=== PATIENT | male | born 1995 | race Caucasian/White ===

== ENCOUNTER 2018-12-20 12:29 | Emergency (ER) | payer OTHER ==
[2018-12-20] MEDS ORDERED: BENZONATATE 100 MG CAPSULE PO ONE (12:50)
--- NOTE | 2018-12-20 12:56 | ER Document Report ---
HPI - HPI Patient complains to provider of: cough Time Seen by Provider: 12/20/18 12:46 Onset: Last week Onset/Duration: Persistent Quality of pain: Achy Pain Level: 2 Context: 23-year-old male presents emergency department with reports that he has had a productive cough for the past week. Reports he is taken Mucinex Delsym without relief of symptoms. He denies fever vomiting diarrhea. Reports he has been sweating feels like he has no energy. Reports he is spitting up some yellow- white phlegm. Denies recent trip. Denies past medical history of asthma, lung disease. Patient is coughing frequently during interview and assessment. Reports he just got out of the 1 month ago. All immunizations up-to-date. Patient reports he quit smoking a couple months ago. Associated Symptoms: Productive cough Exacerbated by: Denies Relieved by: Denies Similar symptoms previously: No Recently seen / treated by doctor: No Past Medical History - General Information source: Patient - Social History Smoking Status: Former Smoker Cigarette use (# per day): No Frequency of alcohol use: None Drug Abuse: None Occupation: [employer] Lives with: Family Family History: None Patient has suicidal ideation: No Patient has homicidal ideation: No Pulmonary Medical History: Reports: Hx Pneumonia Past Surgical History: Reports: Hx Orthopedic Surgery Vertical Provider Document - CONSTITUTIONAL Agree With Documented VS: Yes Exam Limitations: No Limitations General Appearance: WD/WN, No Apparent Distress - HEENT HEENT: Atraumatic, Normal ENT Exam, Normocephalic. negative: Conjuctival Injection, Pharyngeal Erythema, Tympanic Membrane Red - NECK Neck: Normal Inspection, Supple. negative: Lymphadenopathy-Left, Lymphadenopathy-Right - RESPIRATORY Respiratory: No Respiratory Distress - no retractions, Rhonchi - CARDIOVASCULAR Cardiovascular: Regular Rate - GI/ABDOMEN Gastrointestinal: Abdomen Soft, Abdomen Non-Tender - BACK Back: Normal Inspection - MUSCULOSKELETAL/EXTREMETIES Musculoskeletal/Extremeties: REBECA ADAMS - NEURO Level of Consciousness: Awake, Alert, Appropriate - DERM Integumentary: Warm, Dry Course - Re-evaluation Re-evalutation: 12/20/18 12:57 This 23-year-old male presents emergency department with complaints of cough productive for the past week. Reports he is taking multiple nhfb-oqx-griytum medications without relief of symptoms. Patient reports he feels sluggish she sweating he has no energy. Denies fever vomiting diarrhea. 12/20/18 14:53 Chest X-Ray 12/20/18 12:50 IMPRESSION: NO ACUTE RADIOGRAPHIC FINDING IN THE CHEST. Patient was instructed on negative chest x-ray no acute injury no pneumonia. Reports May [place] did not help. Was given a prescription for guaifenesin with codeine. Was instructed to follow-up with his primary care or return here for worsening symptoms he verbalized understanding. - Vital Signs Vital signs: Temp Pulse Resp BP Pulse Ox 98 F 95 18 143/86 H 94 12/20/18 12:32 12/20/18 12:32 12/20/18 12:32 12/20/18 12:32 12/20/18 12:32 - Diagnostic Test Radiology reviewed: Image reviewed, Reports reviewed Discharge - Discharge Clinical Impression: Cough Condition: Stable Disposition: HOME, SELF-CARE Instructions: Cough Suppressant & Expectorant Medications Additional Instructions: *You have been evaluated for cough *Your chest x-ray was negative for any acute injury\pneumonia *Increase fluid intake *Take medication as prescribed *Monitor your temperature, take Tylenol as indicated *Follow up with a primary care provider within one week for recheck *Return to ED for worsening condition, changes, needs, difficulty breathing, concerns Monitor your blood pressure. Your blood pressure was elevated today. This may be because you were anxious, in pain or because you need medication. It is important to follow up with your primary care provider for full evaluation. Prescriptions: Codeine Phosphate/Guaifenesin [Guaifen-Codeine 200-20 mg/10Ml] 10 ml PO QID #120 liquid Forms: Elevated Blood Pressure, Return to Work
--- NOTE | 2018-12-20 13:22 | RADIOLOGY REPORT (SQ) ---
EXAM DESCRIPTION: CHEST 2 VIEWS COMPLETED DATE/TIME: 12/20/2018 1:08 pm REASON FOR STUDY: cough COMPARISON: None. EXAM PARAMETERS: NUMBER OF VIEWS: two views TECHNIQUE: Digital Frontal and Lateral radiographic views of the chest acquired. RADIATION DOSE: NA LIMITATIONS: none FINDINGS: LUNGS AND PLEURA: No opacities, masses or pneumothorax. No pleural effusion. MEDIASTINUM AND HILAR STRUCTURES: No masses or contour abnormalities. HEART AND VASCULAR STRUCTURES: Heart normal size. No evidence for failure. BONES: No acute findings. HARDWARE: None in the chest. OTHER: No other significant finding. IMPRESSION: NO ACUTE RADIOGRAPHIC FINDING IN THE CHEST. TECHNICAL DOCUMENTATION: JOB ID: [id number] [employer]- All Rights Reserved Reading location - IP/workstation name: [email or web address]
[2018-12-20 13:58] VITALS: BP 113/85
== END 2018-12-20 13:54 | disposition home or self-care (01) ==
LOC: ER 12:29
DX: R05 Cough (principal); R61 Generalized hyperhidrosis; Z87.891 Personal history of nicotine dependence; Z87.01 Personal history of pneumonia (recurrent)
CPT/HCPCS: 71046; 99283

== ENCOUNTER 2018-12-26 12:19 | Emergency (ER) | payer OTHER ==
[2018-12-26] MEDS ORDERED: CETIRIZINE 10 MG TABLET PO ONE (14:33)
[2018-12-26] MEDS ORDERED: IPRATROPIUM/ALBUTEROL 0.5-2.5 MG/3 ML AMPUL NEB ONE (14:33)
[2018-12-26] MEDS ORDERED: ALBUTEROL SULFATE HFA (90 MCG/PUFF) 8 GM MDI (1 MDI/ER DISP) IH PRN (14:36)
--- NOTE | 2018-12-26 14:37 | ER Document Report ---
HPI - HPI Time Seen by Provider: 12/26/18 14:24 Pain Level: Denies Context: Patient is a 23-year-old male presents to the emergency department with a chief complaint of cough. Patient states he has had a persistent nagging cough for over 2 weeks. Patient states he was seen in the emergency department last week and given a cough syrup. Patient states he is taking the cough syrup without relief. Patient states he has tried Mucinex, Sudafed, Delsym, DayQuil and "e very pdml-fak-vnulvat medication I can think of. "Patient denies fever. Patient states he is unable to rest at night as his cough is continued to be persistent. Patient states he does not smoke as he did quit 4 months ago. Past Medical History - General Information source: Patient - Social History Smoking Status: Former Smoker Frequency of alcohol use: None Drug Abuse: None Lives with: Alone Family History: None - Past Medical History Cardiac Medical History: Reports: None Pulmonary Medical History: Reports: Hx Pneumonia EENT Medical History: Reports: None Neurological Medical History: Reports: None Endocrine Medical History: Reports: None Renal/ Medical History: Reports: None. Denies: Hx Peritoneal Dialysis Malignancy Medical History: Reports None GI Medical History: Reports: None Musculoskeletal Medical History: Reports None Skin Medical History: Reports None Psychiatric Medical History: Reports: None Traumatic Medical History: Reports: None Infectious Medical History: Reports: None Past Surgical History: Reports: Hx Orthopedic Surgery Vertical Provider Document - CONSTITUTIONAL Agree With Documented VS: Yes Exam Limitations: No Limitations General Appearance: No Apparent Distress - HEENT HEENT: Atraumatic, Normal ENT Exam, Normocephalic, PERRLA - NECK Neck: Normal Inspection - RESPIRATORY Respiratory: Breath Sounds Normal, Wheezing - Mild expiratory wheeze - CARDIOVASCULAR Cardiovascular: Regular Rate, Regular Rhythm - GI/ABDOMEN Gastrointestinal: Abdomen Soft, Abdomen Non-Tender, Normal Bowel Sounds - NEURO Level of Consciousness: Awake, Alert, Appropriate - DERM Integumentary: Warm, Dry, No Rash Course - Re-evaluation Re-evalutation: 12/26/18 14:51 Patient does have minor expiratory wheeze during assessment. We will give the patient a nebulizer treatment and prescribed a albuterol inhaler to go home with. Patient is agreement with this plan. Patient in no acute distress. Patient reports feeling much better after receiving a breathing treatment. Patient no acute distress. Patient to be discharged. - Vital Signs Vital signs: Temp Pulse Resp BP Pulse Ox 97.5 F 84 18 121/102 H 95 12/26/18 12:34 12/26/18 12:34 12/26/18 12:34 12/26/18 12:34 12/26/18 12:34 Discharge - Discharge Clinical Impression: Bronchitis, Cough Condition: Stable Disposition: HOME, SELF-CARE Additional Instructions: Today you were seen in the emergency department for persistent cough. You were seen in the emergency department last week for the same and had a negative chest x-ray. I am prescribing you a dose of steroids which she will take as prescribed, and albuterol inhaler to take home which she will use 2 puffs every 4 hours as needed. You are also being prescribed Zyrtec for your allergies. Please return to the emergency department if you develop develop fever, change in the cough, coughing up blood, severe chest pain, nausea vomiting or diarrhea or any other concerning signs or symptoms. Bronchitis You have acute bronchitis. This disease is an infection or inflammation of the air passageways in your lungs. Symptoms usually include cough, low grade fever, shortness of breath, and wheezing. The cough usually persists for a couple of weeks. Most cases of bronchitis get better without antibiotics. We prescribe antibiotics when we believe bacteria are damaging your airways, or if there's high risk the bronchitis will worsen into pneumonia. Increase your fluid intake. A cool mist humidifier may make your lungs more comfortable. An expectorant (cough medicine that loosens phlegm) can help. If you smoke, STOP!!! Recovery from bronchitis can be somewhat slow, but you should see improvement within a day or two. Repeated episodes of bronchitis may result in lung damage -- for example, chronic bronchitis, recurrent pneumonias, or emphysema. Call the doctor if you develop increasing fever, shortness of breath, chest pain, bloody sputum, or otherwise worsen. If you have not improved at all after several days, contact the physician. Prescriptions: Azithromycin 500 mg PO DAILY #3 tablet Cetirizine HCl [Zyrtec] 10 mg PO DAILY #30 capsule Prednisone [Deltasone 10 mg Tablet] 10 mg PO ASDIR PRN #21 tablet PRN Reason: Referrals: [facility] [Primary [facility]] - Follow up as needed
[2018-12-26 15:20] VITALS: BP 151/96
== END 2018-12-26 15:13 | disposition home or self-care (01) ==
LOC: ER 12:19
DX: J40 Bronchitis, not specified as acute or chronic (principal); R05 Cough; R06.2 Wheezing; Z87.891 Personal history of nicotine dependence; Z87.01 Personal history of pneumonia (recurrent)
CPT/HCPCS: 94640; 99283; J3490; J7620